=== PATIENT | male | born 1990 | race Caucasian/White ===

== ENCOUNTER 2023-04-28 01:01 | Emergency (ER) | payer OTHER, SELFPAY ==
[2023-04-28 01:02] VITALS: BP 136/74
[2023-04-28 02:54] VITALS: BP 110/67
--- NOTE | 2023-04-28 03:06 | ED.GENMED ---
History of Present Illness
General
Chief Complaint: Substance Abuse
Source: patient
Exam Limitations: none
Time Seen by Provider: 04/28/23 02:43
Nursing documentation reviewed up to this point in time: agreed with
Travel History
Have you had any contact with someone who has COVID-19?: No
Do you have any symptoms of coronavirus? Fever > 100 degrees, chills, cough, shortness of breath, sore throat, loss of taste or smell, muscle aches, or headache?: No
History of Present Illness
History of Present Illness:
Pleasant 33-year-old male presents after 'falling off the wagon' and using fentanyl and crack prior to arrival. Patient is concerned because 'there is bad stuff that they are '. He has been clean for 9 months and though he does not want help for
his drug addiction, he does want to be observed to ensure that he does not ' from bed fentanyl '. Patient has no complaints at this time. He states he does not feel anxious any longer. Denies nausea or vomiting. Patient no longer has a
headache or any pain. On my independent physical exam, patient is awake, alert, and oriented x3, heart is regular rate rhythm. Lungs are clear to auscultation bilaterally without wheezes rales or rhonchi. Abdomen is soft and nontender. He is
mentating appropriately.
Past History
Past History
ED Past Medical History: Psychiatric (opiate abuse)
ED Past Surgical History: Orthopedic
Social History
Tobacco: Vaping
Alcohol: None
Drug: Marijuana
Personal: Single
Living: with family
Employment: Not employed
Review of Systems
Review of Systems
Allergies reviewed?: Yes
All Other Systems: ROS reviewed and negative except as documented in HPI and ROS
Constitutional: Reports no symptoms
EENT: Reports no symptoms
Respiratory: Reports no symptoms
Cardiac: Reports no symptoms
ABD/GI: Reports no symptoms
: Reports no symptoms
Musculoskeletal: Reports no symptoms
Skin: Reports no symptoms
Neurological: Reports no symptoms
Endocrine: Reports no symptoms
Hematologic/Lymphatic: Reports no symptoms
Psychiatric: Reports no symptoms
Phy Exam
General Physical Exam
General Presentation: well appearing and no apparent distress
General Skin: warm and dry
General Habitus: normal
General Mental: alert
General Hydration: appears well hydrated
ENT Exam
ENT Exam: EOMI, pharynx normal, neck supple and normocephalic
Eye Exam
Eye Exam: PERRL, cornea clear and conjunctiva normal
Cardiovascular Exam
Cardiovascular Exam: regular rate/rhythm, no edema, no murmur and normal peripheral pulses
Pulmonary Exam
Pulmonary Exam: lungs clear, no respiratory distress, no rales, no crackles, no rhonchi, no stridor, no wheezing and no cough
Gastrointestinal Exam
Gastrointestinal Exam: normal bowel sounds, non tender, soft, no organomegaly, no pulsatile mass and non distended
Neurological Exam
Neurological Exam: alert, oriented x3, no motor deficits and speech normal
Musculoskeletal Exam
Musculoskeletal Exam: full ROM and no edema
Skin Exam
Skin Exam: normal color, warm/dry, no rash and no petechia
Psychiatric Exam
Psychiatric Exam: normal mood/affect
Course
Vital Signs
Initial and Last Documented VS:
Initial Vital Signs
Temp Pulse Resp BP Pulse Ox
98 F 90 18 136/74 97
04/28/23 01:02 04/28/23 01:02 04/28/23 01:02 04/28/23 01:02 04/28/23 01:02
Last Documented Vital Signs
Temp Pulse Resp BP Pulse Ox
98 F 68 17 110/67 99
04/28/23 01:02 04/28/23 03:00 04/28/23 03:00 04/28/23 02:54 04/28/23 03:00
*Critical Care Note
Total Time (30-74mins, 75-104mins- exclusive of procedures): Not Applicable
ED Attending Note
-
Portions of this chart may have been created with voice recognition software.� Occasional wrong word or��sound alike� substitutions may have occurred due to the inherent limitations of voice recognition software.
Discharge Plan
Departure
Patient Disposition: Home (Routine Discharge)
Date of Disposition: 04/28/23
Time of Disposition: 03:53
Patient with high blood pressure during this ER visit?: No
Condition: Good
Discharge Problem:
Drug use
Prescriptions:
No Action
naloxone [Narcan] 4 MG spray,non-aerosol
4 mg intranasal DIRECTED Qty: 2 0RF
Referrals:
Marco Antonio Whitten [Active] -
Activity Restrictions/Additional Instructions:
It was a pleasure meeting you and taking part in your care. We hope for your continued healing and wellness.
Please read discharge instructions in their entirety. However, they are for general education and may not describe your exact diagnosis at discharge. Information on your ER visit and medical conditions were discussed with you along with appropriate
follow up information...
If indicated, please take your medications as instructed and indicated on discharge paperwork.
Please schedule a follow up appointment as directed. Call to schedule an appointment
Please return to the emergency department with ANY change in, persisting, or worsening of symptoms. If any of your symptoms do not improve, or persist, or become more severe within 6-12 hours, please return to the emergency department for further
care.
Please return to the emergency department if you develop a headache, neck pain/stiffness, fever greater than 100.4F, chest pain, shortness of breath, persistent nausea, vomiting, slurred speech, difficulty walking, numbness/tingling, weakness, signs
of infection or any other symptoms that are worrisome to you.
If you have any questions or concerns please do not hesitate to call the Hospital at
Interventions
Interventions:
*Risk Screen - Suicide Last Done: 04/28/23 01:02
*General Assessment Last Done: 04/28/23 02:58
*Neglect/Abuse Screening Last Done: 04/28/23 01:02
ED- Fall Risk Assessment Last Done: 04/28/23 02:58
*ED COVID-19 Vaccine History Last Done: 04/28/23 02:58
ED-Psychological Assessment Last Done: 04/28/23 02:55
[2023-04-28 03:57] VITALS: BP 125/77
== END 2023-04-28 04:00 | disposition home or self-care (01) ==
LOC: EMR 01:01
PROVIDERS: EMERGENCY PHYSICIAN Student in an Organized Health Care Education/Training Program
DX: F19.90 Other psychoactive substance use, unspecified, uncomplicated (principal); F17.290 Nicotine dependence, other tobacco product, uncomplicated
CPT/HCPCS: 99282

== ENCOUNTER 2023-05-08 11:53 | Emergency (ER) | payer OTHER, SELFPAY ==
[2023-05-08 11:57] VITALS: BP 125/84
--- NOTE | 2023-05-08 12:53 | ED.GENMED ---
History of Present Illness
General
Chief Complaint: Skin Problem
Time Seen by Provider: 05/08/23 12:41
Travel History
Have you had any contact with someone who has COVID-19?: No
Do you have any symptoms of coronavirus? Fever > 100 degrees, chills, cough, shortness of breath, sore throat, loss of taste or smell, muscle aches, or headache?: No
History of Present Illness
History of Present Illness:
33-year-old male with history of polysubstance abuse presents to the emergency department for evaluation of redness and a small wound to the left dorsal hand overlying the second MCP joint. He denies any known trauma to the area, states he is
concerned for a 'brown recluse spider bite'. Denies any pain with flexion, denies any fevers or chills. Denies any active IV drug abuse.
Past History
Past History
ED Past Medical History: Psychiatric (opiate abuse)
ED Past Surgical History: Orthopedic
Social History
Tobacco: Vaping
Alcohol: None
Drug: Marijuana
Personal: Single
Living: with family
Employment: Not employed
Review of Systems
Review of Systems
Allergies reviewed?: Yes
All Other Systems: ROS reviewed and negative except as documented in HPI and ROS
Phy Exam
Physical Exam
Physical Exam:
GEN: Well appearing, NAD, WDWN
HEENT: Oral mucosa moist, no scleral icterus
Cardiac: Regular rate
Lung: No respiratory distress, no tachypnea
MSK: No gross deformity or injuries. Superficial skin tear overlying the dorsal second left MCP joint with approximately 1 cm of circular erythema surrounding this. Joint flexion is intact, no obvious joint effusion. No lymphangitis
Skin: Good color, no pallor or jaundice, no rashes
Neuro: AO x3, moves all extremities freely
Psych: Calm, cooperative
Course
Vital Signs
Initial and Last Documented VS:
Initial Vital Signs
Temp Pulse Resp BP Pulse Ox
98.6 F 79 18 125/84 98
05/08/23 11:57 05/08/23 11:57 05/08/23 11:57 05/08/23 11:57 05/08/23 11:57
Last Documented Vital Signs
Temp Pulse Resp BP Pulse Ox
98.6 F 79 18 125/84 98
05/08/23 11:57 05/08/23 11:57 05/08/23 11:57 05/08/23 11:57 05/08/23 11:57
MDM/Problems Addressed
MDM/Problems Addressed:
Will start topical antibiotics, no palpable abscess, no clinical signs of intra-articular involvement
*Critical Care Note
Total Time (30-74mins, 75-104mins- exclusive of procedures): Not Applicable
ED Attending Note
-
Portions of this chart may have been created with voice recognition software.� Occasional wrong word or��sound alike� substitutions may have occurred due to the inherent limitations of voice recognition software.
Discharge Plan
Departure
Patient Disposition: Home (Routine Discharge)
Date of Disposition: 05/08/23
Time of Disposition: 12:53
Patient with high blood pressure during this ER visit?: No
Discharge Problem:
Cellulitis of left hand
Instructions: Cellulitis (Skin Infection), Adult (DC)
Prescriptions:
New
cephalexin 500 mg capsule
500 mg PO Q8H 7 Days Qty: 21 0RF
No Action
naloxone [Narcan] 4 MG spray,non-aerosol
4 mg intranasal DIRECTED Qty: 2 0RF
Interventions
Interventions:
*Risk Screen - Suicide Last Done: 05/08/23 12:46
*General Assessment Last Done: 05/08/23 12:46
*Neglect/Abuse Screening Last Done: 05/08/23 12:46
ED- Fall Risk Assessment Last Done: 05/08/23 12:46
*ED COVID-19 Vaccine History Last Done: 05/08/23 12:46
*Nursing Disposition Last Done: 05/08/23 13:12
ED-Skin Assessment Last Done: 05/08/23 12:46
Discharge Date and Time
Discharge Date/Time: 05/08/23 13:13
== END 2023-05-08 13:13 | disposition home or self-care (01) ==
LOC: EMR 11:53
PROVIDERS: EMERGENCY PHYSICIAN Emergency Medicine
DX: L03.114 Cellulitis of left upper limb (principal); F17.290 Nicotine dependence, other tobacco product, uncomplicated; F19.11 Other psychoactive substance abuse, in remission
CPT/HCPCS: 99282